=== PATIENT | female | born 1985 | race Caucasian/White ===

== ENCOUNTER → 2017-06-21 | Emergency (ER) | payer OTHER ==
[~2017-06-21] VITALS: Ht 157.5 cm; Wt 68.0 kg
[~2017-06-21] MED LIST: TYLENOL-CODEINE1 TA1; ULTRACET PO
== END | disposition left against medical advice (07) ==
LOC: ER 10:32
DX: D25.9 Leiomyoma of uterus, unspecified (principal); R10.2 Pelvic and perineal pain

== ENCOUNTER 2018-06-14 14:10 | Emergency (ER) | payer OTHER ==
[~2018-06-14] VITALS: Ht 160 cm; Wt 66.7 kg
== END 2018-06-14 19:31 | disposition home or self-care (01) ==
LOC: ER 14:10
DX: N93.8 Other specified abnormal uterine and vaginal bleeding (principal)